=== PATIENT | female | born 1955 | race Caucasian/White ===

== ENCOUNTER 2017-12-02 16:30 | Emergency (ER) | payer OTHER ==
[~2017-12-02] VITALS: Ht 175.3 cm; Wt 94.8 kg
[2017-12-02] MEDS ORDERED: HYDROCHLOROTHIA25 MG PO (16:51)
[2017-12-02] MEDS ORDERED: VENTOLIN HFA18 GM INH (16:51)
[2017-12-02] MEDS ORDERED: METFORMIN HCL500 MG PO (16:52)
[2017-12-02] MEDS ORDERED: LISINOPRIL10 MG PO (16:52)
[2017-12-02] MEDS ORDERED: ATORVASTATIN CA10 MG PO (16:52)
[2017-12-02] MEDS ORDERED: TAMSULOSIN HCL0.4 MG PO (16:52)
[2017-12-02] MEDS ORDERED: DESVENLAFAXINE100 M3 PO (16:53)
[2017-12-02] MEDS ORDERED: PROPRANOLOL HCL20 MG PO (16:53)
[2017-12-02] MEDS ORDERED: ITRACONAZOLE100 MG PO (16:56)
[2017-12-02] MEDS ORDERED: ABILIFY5 MG PO (16:56)
== END 2017-12-02 18:13 | disposition home or self-care (01) ==
LOC: ED 16:30
DX: S80.12XA Contusion of left lower leg, initial encounter (principal); X58.XXXA Exposure to other specified factors, initial encounter; I10 Essential (primary) hypertension; E11.9 Type 2 diabetes mellitus without complications; J44.9 Chronic obstructive pulmonary disease, unspecified; F32.9 Major depressive disorder, single episode, unspecified; F41.9 Anxiety disorder, unspecified; F17.200 Nicotine dependence, unspecified, uncomplicated; Z79.2 Long term (current) use of antibiotics; Z88.8 Allergy status to other drugs, medicaments and biological substances; Z79.899 Other long term (current) drug therapy; Z79.84 Long term (current) use of oral hypoglycemic drugs
CPT/HCPCS: 85379; 99283

== ENCOUNTER 2022-01-25 10:25 | Emergency (ER) | payer OTHER ==
[~2022-01-25] VITALS: Ht 175.3 cm; Wt 94.8 kg
[~2022-01-25 10:25] MED LIST: ABILIFY5 MG PO; ATORVASTATIN CA10 MG PO; DESVENLAFAXINE100 M3 PO; HYDROCHLOROTHIA25 MG PO; ITRACONAZOLE100 MG PO; LISINOPRIL10 MG PO; METFORMIN HCL500 MG PO; PROPRANOLOL HCL20 MG PO; TAMSULOSIN HCL0.4 MG PO; VENTOLIN HFA18 GM INH
[2022-01-25] MEDS ORDERED: AMLODIPINE BESYL5 MG PO (10:33)
[2022-01-25] MEDS ORDERED: ADVAIR HFA 115-12 GM INH (10:34)
[2022-01-25] MEDS ORDERED: LISINOPRIL-HCT1 EACH PO (10:34)
[2022-01-25] MEDS ORDERED: LISINOPRIL20 MG PO (10:34)
[2022-01-25] MEDS ORDERED: HYDROCODON-ACE1 EA10 PO (13:24)
== END 2022-01-25 13:37 | disposition home or self-care (01) ==
LOC: ED 10:25
DX: S62.347A Nondisplaced fracture of base of fifth metacarpal bone, left hand, initial encounter for closed fracture (principal); I10 Essential (primary) hypertension; E11.9 Type 2 diabetes mellitus without complications; J44.9 Chronic obstructive pulmonary disease, unspecified; W18.09XA Striking against other object with subsequent fall, initial encounter; F17.200 Nicotine dependence, unspecified, uncomplicated; Z88.2 Allergy status to sulfonamides; Z91.048 Other nonmedicinal substance allergy status; Z79.84 Long term (current) use of oral hypoglycemic drugs
CPT/HCPCS: 73130

== ENCOUNTER 2022-02-04 14:35 | Emergency (ER) | payer OTHER ==
[~2022-02-04] VITALS: Ht 175.3 cm; Wt 103.0 kg
[~2022-02-04 14:35] MED LIST changes: +ADVAIR HFA 115-12 GM INH; +AMLODIPINE BESYL5 MG PO; +HYDROCODON-ACE1 EA10 PO; +LISINOPRIL-HCT1 EACH PO; +LISINOPRIL20 MG PO
--- OUTSIDE RECORDS SUMMARY | 2022-02-04 14:38 | XMS ---
PreManage Notification: MARY REDDY Security Director Cardiovascular Events No recent Security Events currently on file CRITERIA MET - PDM - [facility] - 2 Visits in 30 Days CARE PROVIDERS There are no care providers on record at this time. Care Guidelines exist for the following facilities: [facility] ( 09/18/2019 ) Andre VISIT COUNT (12 MO.) 3 [facility] TOTAL 3 NOTE: Visits indicate total known visits. ED/UCC VISIT TRACKING (12 MO.) 02/04/2022 14:35 [facility] TYPE: Emergency COMPLAINT: - ABNORMAL LAB RESULTS 02/02/2022 10:29 [facility] TYPE: Emergency COMPLAINT: - STABBING PAIN UNDER L BREAST 01/25/2022 10:25 [facility] TYPE: Emergency COMPLAINT: - CUTS TO HANDS AND FACE DIAGNOSES: - Allergy status to sulfonamides - Nicotine dependence, unspecified, uncomplicated - Nondisplaced fracture of base of fifth metacarpal bone, left hand, initial encounter for closed fracture - Chronic obstructive pulmonary disease, unspecified - Type 2 diabetes mellitus without complications - long term care phlebotomist (current) use of oral hypoglycemic drugs - Unspecified injury of face, initial encounter - Other nonmedicinal substance allergy status - Essential (primary) hypertension - Striking against other object with subsequent fall, initial encounter INPATIENT VISIT TRACKING (12 MO.) 2021 05:28 [facility] TYPE: Neuro Surgery DIAGNOSES: 39[address]. Other specified disorders of brain [email or web address]
--- NOTE | 2022-02-05 09:53 | EKG ---
[facility] [address] [place], [place] [address] Signed Sinus tachycardia Otherwise normal ECG When compared with ECG of 04-FEB-2022 14:35, (Unconfirmed) No significant change was found Confirmed by MAHSA MILIAN MD ([id number]) on 02/05/2022 9:52:57 AM Electronically Signed By: MAHSA MILIAN MD 02/05/22 0953 PATIENT NAME: MARY REDDY BECK Electrocardiogram DATE OF : 59 PHYSICIAN: MAHSA MILIAN MD REPORT #: [id number] REPORT IS CONFIDENTIAL AND NOT TO BE RELEASED WITHOUT AUTHORIZATION
== END 2022-02-04 18:37 | disposition home or self-care (01) ==
LOC: ED 14:35
DX: R07.9 Chest pain, unspecified (principal); R60.0 Localized edema; I10 Essential (primary) hypertension; E11.9 Type 2 diabetes mellitus without complications; J44.9 Chronic obstructive pulmonary disease, unspecified; F17.200 Nicotine dependence, unspecified, uncomplicated; Z88.2 Allergy status to sulfonamides; Z88.8 Allergy status to other drugs, medicaments and biological substances; Z79.84 Long term (current) use of oral hypoglycemic drugs; Z79.899 Other long term (current) drug therapy
CPT/HCPCS: 36415; 71260; 80048; 84484; 85025; 93005; 93010; 96361; 99285-25; J7030; Q9967

== ENCOUNTER 2024-02-20 05:40 | Day surgery (SDC) | payer MEDICARE, OTHER ==
[2024-02-07 11:20] VITALS: BP 130/81
[~2024-02-20] VITALS: Ht 175.3 cm; Wt 98.2 kg
[~2024-02-20 05:40] MED LIST changes: +GABAPENTIN ER300 MG PO; +LACTATED RINGER'S 1,000 ML IV SCH; +MELOXICAM15 MG PO; +NICOTINE PATCH1 EACH TD
[2024-02-20] MEDS ORDERED: LIDOCAINE HCL 2% 5 ML SDV ONE ×2 (06:01→11:48)
[2024-02-20] MEDS ORDERED: BUPIVACAINE 0.75% IN DEXTROSE 2 ML AMP ONE (06:01)
[2024-02-20] MEDS ORDERED: MIDAZOLAM HCL 2 MG/2 ML VIAL ONE (06:02)
[2024-02-20] MEDS ORDERED: METOCLOPRAMIDE HCL 10 MG/2 ML SDV ONE (06:02)
[2024-02-20] MEDS ORDERED: KETOROLAC TROMETHAMINE 30 MG/ML VIAL ONE (06:02)
[2024-02-20] MEDS ORDERED: DEXAMETHASONE SOD PHOS 4 MG/ML VIAL ONE ×2 (06:02→11:48)
[2024-02-20] MEDS ORDERED: KETAMINE in NS 50 MG/5 ML SYR ONE (06:02)
[2024-02-20] MEDS ORDERED: LACTATED RINGER'S 1,000 ML IV ONE (06:02)
[2024-02-20] MEDS ORDERED: FAMOTIDINE 20 MG/ 2 ML VIAL ONE (06:02)
[2024-02-20] MEDS ORDERED: propofoL 200 MG/20 ML VIAL ONE (06:02)
[2024-02-20] MEDS ORDERED: ondansetron HCL 4 MG/2 ML VIAL ONE (06:02)
[2024-02-20] MEDS ORDERED: fentaNYL citrate 100 MCG/2 ML VIAL ONE (06:02)
[2024-02-20 06:18] VITALS: BP 145/76
[2024-02-20] MEDS ORDERED: INTRA-ARTICULAR ANALGESIC INJECTION XX SCH (07:00)
[2024-02-20] MEDS ORDERED: CEFAZOLIN SODIUM 2 GM/20 ML SYR IV SCH ×2 (07:00→15:00)
[2024-02-20] MEDS ORDERED: OXYCODONE HCL 5 MG TAB PO PRN (07:00)
[2024-02-20] MEDS ORDERED: OXYCODONE HCL 5 MG TAB PO SCH (07:00)
[2024-02-20] MEDS ORDERED: GABAPENTIN 600 MG TAB PO SCH (07:00)
[2024-02-20] MEDS ORDERED: LIDOCAINE HCL 1% 5 ML SDV INJ ONE (07:00)
[2024-02-20] MEDS ORDERED: IBLOOD GLUCOSE TEST STRIP 1 EA TEST VI PRN ×2 (07:00→08:15)
[2024-02-20] MEDS ORDERED: ondansetron HCL 4 MG TAB PO PRN (07:00)
[2024-02-20] MEDS ORDERED: TRANEXAMIC ACID 2,000 MG in SODIUM CHLORIDE 0.9% 100 ML IV SCH (07:00)
[2024-02-20] MEDS ORDERED: ondansetron HCL 4 MG TAB PO SCH (07:00)
[2024-02-20] MEDS ORDERED: PANTOPRAZOLE SODIUM 40 MG TABEC PO SCH (07:00)
[2024-02-20] MEDS ORDERED: KETOROLAC TROMETHAMINE 30 MG/ML VIAL IV PRN (07:00)
[2024-02-20] MEDS ORDERED: HYDROCORTISONE SOD SUCCINATE 100 MG/2 ML VIAL ONE (07:10)
[2024-02-20] MEDS ORDERED: DIGOXIN 500 MCG/2 ML AMP ONE (07:52)
[2024-02-20] MEDS ORDERED: PROCHLORPERAZINE EDISYLATE 10 MG/2 ML VIAL IV PRN (08:15)
[2024-02-20] MEDS ORDERED: MORPHINE SULFATE 10 MG/ML VIAL IV PRN (08:15)
[2024-02-20] MEDS ORDERED: METOCLOPRAMIDE HCL 10 MG/2 ML SDV IV PRN (08:15)
[2024-02-20] MEDS ORDERED: fentaNYL citrate 50 MCG/ML SDV IV PRN (08:15)
[2024-02-20] MEDS ORDERED: NALOXONE HCL 0.4 MG SYR IV PRN (08:15)
[2024-02-20] MEDS ORDERED: ondansetron HCL 4 MG/2 ML VIAL IV PRN (08:15)
[2024-02-20] MEDS ORDERED: droPERidol 5 MG/2 ML VIAL IV PRN (08:15)
[2024-02-20] MEDS ORDERED: CEFUROXIME250 MG PO (08:34)
[2024-02-20] MEDS ORDERED: GABAPENTIN300 MG PO (08:35)
[2024-02-20] MEDS ORDERED: MELOXICAM15 MG PO (08:35)
[2024-02-20] MEDS ORDERED: XARELTO10 MG PO (08:35)
[2024-02-20] MEDS ORDERED: ACETAMINOPHEN500 MG PO (08:35)
[2024-02-20] MEDS ORDERED: OXYCODONE HCL5 MG PO (08:35)
[2024-02-20] MEDS ORDERED: SENNA LAX8.6 MG PO (08:35)
[2024-02-20] MEDS ORDERED: MELOXICAM 15 MG TAB PO SCH (09:00)
[2024-02-20] MEDS ORDERED: HYDROCORTISONE 10 MG TAB PO SCH (09:00)
--- NOTE | 2024-02-20 09:06 | NUR ---
02/20/24 0906 Felicia Kelsey 0834 PT TO PACU SLEEPING ORAL AIRWAY IN PLACE O2 VIA MASK. FOGGING NOTED IN MASK. XRAY AT BEDSIDE. FILMS DONE DR KELSEY APPROVED FILMS. 0843 ORAL AIRWAY REMOVED PT REMAINS ON O2 AT 6L. PT HAS HX OF SLEEP APNEA, PT SNORING, RESPONDS TO VERBAL STIMULI. 0901 O2 TURNED OFF PT OBSTRUCTS WHEN SHE FALLS ASLEEP SATS DROP, 0905 O2 PLACED BACK ON VIA MASK AT 6L
[2024-02-20 09:40] VITALS: BP 174/84
[2024-02-20] MEDS ORDERED: ACETAMINOPHEN 1,000 MG/100 ML VIAL IV ONE (09:45)
[2024-02-20] MEDS ORDERED: TRANEXAMIC ACID 2,000 MG in SODIUM CHLORIDE 0.9% 100 ML IV ONE (09:47)
--- NOTE | 2024-02-20 10:04 | NUR ---
0935-PT BACK TO ROOM FROM PACU ON 2L VIA WY. RECEIVED REPORT FROM SHERYL MCFADDEN. PT IS DROWSY. RATES PAIN 9/10. DENIES NAUSEA. DRESSING IS CLEAN, DRY, AND INTACT. CRYO CUFF IN PLACE AND RUNNING. PT'S SISTER AT BED SIDE. 0949-VO FOR OFIRMEV PER DARREN SCHUMACHER. 0953-OFIRMEV GIVEN PER EMAR. PT LAYING IN BED WITH EYES CLOSED. RESP EVEN AND UNLABORED. NO SIGNS OF DISTRESS. PT AWAKES EASILY AND MOANS THEN RELAXES AND STARTS TO SNORE. NO OTHER NEEDS AT THIS TIME. CALL LIGHT WITHIN REACH.
--- NOTE | 2024-02-20 10:04 | OR ---
[facility] [address] [place] [address] Signed DATE OF OPERATION: 02/20/2024 SURGEON: Myah Kelsey MD PREOPERATIVE DIAGNOSIS: Degenerative joint disease, right hip. POSTOPERATIVE DIAGNOSIS: Degenerative joint disease, right hip. PROCEDURE PERFORMED: Right total hip arthroplasty with Estuardo. JOURNALISM INSTRUCTOR: Jessy Hall PA-C. Jessy was present and critical for all portions of the procedure. ANESTHESIA: Spinal. BLOOD LOSS: 175 mL. IMPLANTS: Secur-Fit advanced size 7 high offset with a 54 cup and two screws, +2.5 femoral head. BRIEF HISTORY: Mary is a 68-year-old female with progressive worsening of osteoarthritis in her hip. She had undergone nonoperative treatment without substantial relief. Risks, benefits, and alternatives of surgery were discussed with her and she elected to proceed. DESCRIPTION OF PROCEDURE: Once consent was obtained, she was taken to the operating room after adequate anesthesia. She was placed on the operating table in a left lateral decubitus position. Axillary roll was placed and all downside pressure points were well padded. The hip was prepped and draped in a standard sterile fashion. The two pins for the navigation system were placed in the iliac crest in the posterior one-third. This was done through percutaneous incisions. The hip was approached through standard anterior lateral approach, taken through skin and subcutaneous tissue. IT band was divided longitudinally. The vastus lateralis was divided from the tip of the trochanter along Electronically Signed By: MYAH KELSEY MD 02/20/24 1004 PATIENT NAME: MARY REDDY OPERATIVE REPORT DATE OF : 59 REPORT #: [id number] PHYSICIAN: MYAH KELSEY MD PCP: SULEMAN ALEXANDRE MD REPORT IS CONFIDENTIAL AND NOT TO BE RELEASED WITHOUT AUTHORIZATION [facility] [address] [place], [place] [address] Signed the anterior margin of the femur distally and subperiosteally elevated around the lesser trochanter. The capsule and gluteus minimus were then cut from the trochanter along the femoral neck to the acetabular rim. This was then peeled off the anterior femoral neck. The femur was then registered with the computer. The hip was then dislocated. Femoral neck cut made one fingerbreadth above the lesser trochanter. The femoral head was passed onto the back table and preserved. Periacetabular soft tissue was removed. The acetabulum was then registered with the computer and the reamer was brought in. The acetabulum was reamed using a 54 single pass to specifications of the computer. The debris was cleaned out of the acetabulum and the cup was impacted until it was well-seated. Two screws were placed in the posterior superior quadrant. The liner was then impacted until it was well locked. Attention was then turned to the proximal femur, this was opened using RecruitTalk cutter, followed by the Maggi awl. It was then reamed with a lateralized reamer. It was then sequentially broached up to a 7, which was found to be quite well fitting. The high offset neck was placed on it with initially a -2.5, then a +2.5. A +2.5 felt secure with a negative Shuck test. She had 100 degrees of flexion with 30 of internal and external rotation. No impingement was noted. The computer verified judaism of leg length and offset. The hip was dislocated and the trials removed. The final stem was impacted to the same level as the broach. The +2.5 head was impacted after cleaning the trunnion. The hip was reduced again, found to be an excellent stability. The wound was copiously irrigated with one bottle of Surgiphor after changing gloves. It was then irrigated with normal saline. The incision of soft tissues was injected with 100 mL ropivacaine and Toradol mixture. The capsule was closed using #2 FiberWire. The vastus and IT band layers were closed independently using #2 StrataFix, subcutaneous tissue with 0-StrataFix and skin with 3-0 StrataFix. The wound was sealed with LiquiBand and Steri-Strips. An Acticoat 7 dressing was applied. The patient was awakened and taken to the recovery room in satisfactory condition. All sponge, needle, and instrument counts correct. Myah Kelsey MD BA/MODL /[id number] Electronically Signed By: MYAH KELSEY MD 02/20/24 1004 PATIENT NAME: MARY REDDY OPERATIVE REPORT DATE OF : 59 REPORT #: [id number] PHYSICIAN: MYAH KELSEY MD PCP: SULEMAN ALEXANDRE MD REPORT IS CONFIDENTIAL AND NOT TO BE RELEASED WITHOUT AUTHORIZATION [address] [address] Signed Copies: ~ Electronically Signed By: MYAH KELSEY MD 02/20/24 1004 PATIENT NAME: MARY REDDY OPERATIVE REPORT DATE OF : 59 REPORT #: [id number] PHYSICIAN: MYAH KELSEY MD PCP: SULEMAN ALEXANDRE MD REPORT IS CONFIDENTIAL AND NOT TO BE RELEASED WITHOUT AUTHORIZATION
--- NOTE | 2024-02-20 10:13 | NUR ---
1013-PT LAYING IN BED WITH EYES CLOSED AND SNORING. NO OTHER NEEDS AT THIS TIME. CALL LIGHT WITHIN REACH.
[2024-02-20] MEDS ORDERED: HYDROCORTISONE10 MG PO (10:31)
[2024-02-20 10:34] VITALS: BP 179/83
--- NOTE | 2024-02-20 10:36 | NUR ---
PT LAYIING IN BED WITH EYSES CLOSED WITH OCCASIONAL SNORING. RESP EVEN AND UNLABORED. RATES PAIN /10. DENIES NAUSEA. R HIP DRESSING CLEAN, DRY, AND INTACT. CRYO CUFF IN PLACE AND RUNNING. CALL LIGHT WITHIN REACH. DISCUSSED NERVE BLOCKS WITH LAKISHA SCHUMACHER. WILL DO BLOCKS WHEN ENDY'S CURRENT CASE IS COMPLETE. PT ARGREEABLE TO THIS PLAN.
--- NOTE | 2024-02-20 10:45 | NUR ---
PTS DRINKING WATER AND EATING A CRACKER. PAIN MEDICATION GIVEN PER EMAR. NO OTHER NEEDS AT THIS TIME. CALL LIGHT WITHIN REACH.
[2024-02-20 11:34] VITALS: BP 156/91
--- NOTE | 2024-02-20 11:36 | NUR ---
PT LAYING IN BED WITH EYES CLOSED. PT WAKES EASILY WITH VERBAL STIMULI. RESP EVEN AND UNLABORED. RATES PAIN 6/10. DENIES NAUSEA. DRESSING IS CLEAN, DRY, AND INTACT. CRYO CUFF IN PLACE AND RUNNING. PT GOWN AND BED SHEETS ARE SOILD. 1140-BED SHEETS CHANGED WITH 2 RN ASSIST. PT TOLERATED WELL. RATES PAIN A 6/10 WHEN NOT MOVING. NO OTHER NEEDS AT THIS TIME. CALL LIGHT WITHIN REACH.
[2024-02-20] MEDS ORDERED: dexmedeTOMIDine HCl 200 MCG/2 ML VIAL ONE (11:48)
[2024-02-20] MEDS ORDERED: Ropivacaine HCl 0.5% 30 ML VIAL ONE ×2 (11:48→12:04)
[2024-02-20] MEDS ORDERED: SODIUM CHLORIDE 0.9% 20 ML IV ONE ×2 (11:48→12:04)
--- NOTE | 2024-02-20 11:55 | NUR ---
1155-LAKISHA COOK SAUCE IN ROOM FOR NERVE BLOCKS. 1207-NERVE BLOCKS COMPLETE. NO OTHER NEEDS AT THIS TIME. SISTER BACK IN ROOM. CALL LIGHT WITHIN REACH.
[2024-02-20 12:59] VITALS: BP 104/80
--- NOTE | 2024-02-20 13:14 | NUR ---
LE 1240-PT UPTO BEDSIDE COMMODE WITH 2 RN ASSIST. PT STATES WHEN MOVING RIGHT LEG SHE FELT A POP WITH PAIN. PT ABLE TO MOVE TO COMMODE. LE 1255-PT VOIDS 1100ML OF YELLOW URINE. LE 1259-PT BACK TO BED WITH 2 RN ASSIST. RATES PAIN 5/10. RESP EVEN AND UNLABORED. DRESSING IS CLEAN, DRY, AND INTACT. CRYO CUFF IN PLACE AND RUNNING. LUNCH ORDER. SISTER AT BEDSIDE. CALL LIGHT WITHIN REACH. LE 1310-LUNCH DELIVERED.
--- NOTE | 2024-02-20 13:24 | NUR ---
PT IN ROOM WITH PATIENT.
[2024-02-20 14:16] VITALS: BP 148/73
--- NOTE | 2024-02-20 14:21 | NUR ---
1415-PT BACK TO ROOM FROM PHYSICAL THERAPY.
[2024-02-20] MEDS ORDERED: GABAPENTIN 300 MG CAP PO SCH (15:00)
[2024-02-20] MEDS ORDERED: ACETAMINOPHEN 500 MG TAB PO SCH (15:00)
--- NOTE | 2024-02-20 15:13 | NUR ---
NATALIO 1422-PT IS READY TO GET DRESSED. VSS. RATES PAIN 4/10. DRESSING IS CLEAN, DRY, AND INTACT. SISTER IN THE ROOM. PT WILL GET DRESSED. CALL LIGTH WITHIN REACH.
--- NOTE | 2024-02-20 15:43 | NUR ---
NATALIO 1525-WENT OVER DISCHARGE INSTRUCTIONS WITH PT. PT IS DROWSY AND WOULD CLOSE HER EYES WHILE GOING OVER INSTRUCTION. PT AMBULATES WITH WALKER TO WHEELCHAIR AND RIDE PROVIDED TO FRONT OF HOSPITAL WHERE SISTER WAS WAITING. WENT OVER DISCHARGE INSTRUCTIONS WITH PT'S SISTER. ALL QUESTIONS ANSWERED. QUESTIONS RE ONE MEDICATION. WILL CALL DR. BLAKE AND CLARIFY.
--- NOTE | 2024-02-20 15:54 | NUR ---
1516-PHONE CALL TO DR BLAKE RE HYDROCORTISONE. PT PICKED UP MEDICATION SENT IN BY [facility] WITH SPECIFIC INSTRUCTIONS. DR. BLAKE WANTS PT TO FOLLOW [facility] INSTRUCTIONS. FAMILY NOTIFIED.
[2024-02-20] MEDS ORDERED: SENNOSIDES 1 TAB PO SCH (21:00)
[2024-02-21] MEDS ORDERED: Rivaroxaban 10 MG TAB PO SCH (08:00)
[2024-02-21] MEDS ORDERED: DICLOFENAC SOD 75 MG TABEC PO SCH (08:00)
[2024-02-21] MEDS ORDERED: cefuroxime axetiL 250 MG TAB PO SCH (09:00)
--- NOTE | 2024-02-23 12:17 | EKG ---
[facility] [address] [place] [address] Signed Normal sinus rhythm Low voltage QRS Borderline ECG When compared with ECG of 04-FEB-2022 14:36, No significant change was found Confirmed by Asael Saeed MD ([id number]) on 02/23/2024 12:17:23 PM Electronically Signed By: ASAEL SAEED DO 02/23/24 1217 PATIENT NAME: MAUREENMARYMELVIN SOLARES Electrocardiogram DATE OF : 59 PHYSICIAN: ASAEL SAEED DO REPORT #: [id number] REPORT IS CONFIDENTIAL AND NOT TO BE RELEASED WITHOUT AUTHORIZATION
== END 2024-02-20 15:25 | disposition home or self-care (01) ==
LOC: DS 05:40
PROVIDERS: ATTEND Specialist
PROC: 0SR90JZ Replacement of Right Hip Joint with Synthetic Substitute, Open Approach (ICD-10-PCS; principal; 2024-02-20 07:00)
DX: M16.11 Unilateral primary osteoarthritis, right hip (principal); I10 Essential (primary) hypertension; E11.9 Type 2 diabetes mellitus without complications; F17.200 Nicotine dependence, unspecified, uncomplicated; Z79.899 Other long term (current) drug therapy; Z88.2 Allergy status to sulfonamides; Z88.8 Allergy status to other drugs, medicaments and biological substances
CPT/HCPCS: 01214; 72170; 93005; 93010; 97161; A9270; C1713; C1776; J0131; J0690; J1100; J1160; J1720; J1885; J2001; J2250; J2405; J2704; J2765; J2795; J3010; J3490; J7121

== ENCOUNTER 2024-02-26 18:29 | Observation (INO) | payer MEDICARE, OTHER ==
[~2024-02-26] VITALS: Ht 175.3 cm; Wt 101.5 kg
[~2024-02-26 18:29] MED LIST changes: +ACETAMINOPHEN500 MG PO; +CEFUROXIME250 MG PO; +GABAPENTIN300 MG PO; +HYDROCORTISONE10 MG PO; -LACTATED RINGER'S 1,000 ML IV SCH; +OXYCODONE HCL5 MG PO; +SENNA LAX8.6 MG PO; +XARELTO10 MG PO
[2024-02-26 20:33] LABS: BASOPHILS 0.6 % (0-2); HEMOGLOBIN 11.1 g/dL (12.0-18.0)
[2024-02-26 20:36] LABS: HEMATOCRIT 32.7 % (35.0-50.0); LYMPHOCYTES 23.8 % (24-44); MCH 30.9 (27-36); MCHC 34.1 g/dl (30-36); MCV 90.5 fl (81-99); MONOCYTES 8.2 % (0-12); NEUTROPHILS 64.4 % (39-80); PLATELET COUNT 397 K/uL (140-440); RBC 3.61 M/ul (4.3-5.7); RDW 13.3 (10.5-15.0)
[2024-02-26 20:40] LABS: ALBUMIN 3.2 g/dL (3.4-5.0); ALBUMIN/GLOBULIN RATIO 0.97 (1.1-2.4); ANION GAP 11.4 (7-21); BILIRUBIN, TOTAL 0.2 ng/dL (0.2-1.0); BUN/CREATININE RATIO 21.15 (6.0-28.6); CALCIUM 9.5 mg/dL (8.5-10.1); CREATININE, SERUM 1.04 mg/dL (0.55-1.02); POTASSIUM 4.4 mmol/L (3.5-5.1); PROTEIN, TOTAL 6.5 g/dL (6.4-8.2)
[2024-02-26] MEDS ORDERED: CEFTRIAXONE/SODIUM CHLORIDE 2 GM/100 ML PIGGYBACK IV ONE (21:45)
[2024-02-26] MEDS ORDERED: DAPTOmycin 500 MG/10 ML VIAL IV ONE (21:45)
[2024-02-26] MEDS ORDERED: OXYCODONE HCL 5 MG TAB PO PRN (21:45)
[2024-02-26 22:25] LABS: LACTIC ACID, BLOOD 0.8 mmol/L (0.4-2.0)
[2024-02-26 23:01] VITALS: BP 169/80
[2024-02-26] MEDS ORDERED: GABAPENTIN300 MG PO (23:06)
--- NOTE | 2024-02-26 23:38 | NUR ---
PT TO FLOOR VIA STRETCHER WITH ED RN. REPORT RECEIVED. PT ALERT AND ORIENTED. SBA WITH FWW TO [facility] TO VOID. GAIT STEADY. BACK TO BED, DREA WELL. ASSISTANCE PROVIDED TO LIFT RIGHT LEG INTO BED. RIGHT LEG WITH GENERALIZED EDEMA AND REDNESS. WARMTH NOTED IN HIP AREA. SURGICAL DRESSING INTACT WITH OLD DRAINAGE. ICE PACKS APPLIED TO RIGHT HIP. STRONG PEDAL PULSES FELT. PT REPORTS CHONIC INTERMITTENT NUMBNESS IN FRON OF RIGHT LEG FROM HIP TO KNEE. PT REPORTS RLE PAIN 8/10. PRN FOR PAIN ADMIN PER EMAR. SANDWICH BOX PROVIDED. PT ORIENTED TO ROOM AND NURSE CALL LIGHT. ADMISSION ASSESSMENT COMPLETE. PT DENIES QUESTIONS OR CONCERNS. CALL LIGHT IN REACH. BED ALARM FOR SAFETY.
[2024-02-27] VITALS (9 sets, daily range): BP systolic 116–154; BP diastolic 57–82
--- NOTE | 2024-02-27 00:05 | NUR ---
PATIENT CALLED TO USE THE BEDSIDE COMMODE. SBA. PATIENT ASSISTED LIFTING HER RIGHT LEG OUT OF BED AND BACK. PATIENT VOIDED 400ML YELLOW URINE AND LARGE HARD BM. WINDOW BLINDS DOWN PER PATIENT. NO OTHER NEEDS AT THIS TIME. CALL LIGHT IN REACH. BED ALARM ON FOR SAFETY.
--- NOTE | 2024-02-27 02:19 | NUR ---
PT RESTING WITH EYES CLOSED. AWAKENS EASILY. VS AND I&O OBTAINED. NO C/O PAIN AT THIS TIME. ICE PACKS TO RIGHT HIP. GENERALIZED EDEMA/REDNESS UNCHANGED. DRESSING INTACT TO RIGHT HIP WITH OLD DRAINAGE. ASSISTED PT TO REPOSITION. HOB ELEVATED. NO FURTHER NEEDS. BED ALARM IN PLACE. CALL LIGHT IN REACH.
--- NOTE | 2024-02-27 04:15 | NUR ---
PT RESTING IN BED WITH EYES CLOSED. RESPIRATIONS EVEN. CALL LIGHT IN REACH. BED ALARM FOR SAFETY.
--- NOTE | 2024-02-27 04:45 | NUR ---
SBA PATIENT UP TO BEDSIDE COMMODE VOIDED 350ML YELLOW URINE. PATIENT IS BACK IN BED. PATIENT ASSISTED IN LIFTING HER RIGHT LEG OUT AND BACK TO BED. COFFEE PROVIDED PER PATIENT.
--- NOTE | 2024-02-27 05:08 | NUR ---
PT AWAKE IN BED. VS AND I&O OBTAINED, WNL. PT REPORTS RIGHT LEG PAIN 8/. PRN FOR PAIN ADMIN PER EMAR. NO FURTHER NEEDS.
[2024-02-27 05:30] LABS: HEMOGLOBIN 11.3 g/dL (12.0-18.0); MONOCYTES 7.6 % (0-12); RDW 13.3 (10.5-15.0)
[2024-02-27 05:33] LABS: BASOPHILS 0.6 % (0-2); EOSINOPHILS 3.6 % (0-6); HEMATOCRIT 34.2 % (35.0-50.0); LYMPHOCYTES 23.7 % (24-44); MCH 29.9 (27-36); MCV 90.7 fl (81-99); NEUTROPHILS 64.5 % (39-80); PLATELET COUNT 393 K/uL (140-440); RBC 3.77 M/ul (4.3-5.7)
--- NOTE | 2024-02-27 07:00 | NUR ---
Pt report received from LESA Jara. Pt is resting in bed, supine, with HOB elevated, breathing is regular, even, and non-labored and she is asleep. White board updated. Side rails up x4, call light, bedside table, and personal belongings in reach.
[2024-02-27] MEDS ORDERED: Rivaroxaban 10 MG TAB PO SCH (08:00)
--- NOTE | 2024-02-27 08:36 | NUR ---
Patient called requesting bedside commode assistance. After voiding, they walked around their room with walker and stand by assist. Patient reported being in pain and nurse was notified. No other cares were asked for.
--- NOTE | 2024-02-27 09:00 | NUR ---
Advised by Aides that this pt is requesting pain meds at this time. In with pt to administer PO Oxy per emar for 9 out of 10 right hip/leg pain after ambulation with aides in the room. Ice packs x2 applied over right hip. call light in reach.
[2024-02-27] MEDS ORDERED: METFORMIN HCL500 M1 PO (09:27)
--- NOTE | 2024-02-27 09:35 | NUR ---
In with pt in response to call light because pt is "finished on the commode". Pt was able to stand and pivot transfer unassisted to the bed before this RN arrived in her room. Assisted pt with lifting her right leg back in to bed. Commode emptied of a large soft formed BM and 400ml clear yellow urine. Call light, personal belongings, bedside table in reach.
--- NOTE | 2024-02-27 09:52 | NUR ---
ALERT AND ORIENTED IN BED. STATES SHE LIVES IN APARTMENT WITH 16 STEPS, HOWEVER SHE IS STAYING WITH A FRIEND WHILE SHE RECOVERS FROM SURGERY. STATES SHE HAS A WALKER, TOILET RISER, SHOWER CHAIR. SHE IS UNABLE TO DRIVE DUE TO RECENT SURGERY, HOWEVER FRIEND AND GOBHI ASSIST WITH TRANSPORTATION. PATIENT HAS HAD ISSUES WITH BUYING FOOD. STATES SHE GETS $118 IN SNAP BENEFITS FOR FOOD. DENIES NEED FOR INFORMATION REGARDING FOOD PANTRIES. STATES SHE DOES NOT NEED THAT INFORMATION YET. DENIES FURTHER NEEDS. STATES SHE WILL NOTIFY STAFF WITH ANY CHANGES.
[2024-02-27] MEDS ORDERED: TYLENOL EXTRA500 MG PO (10:37)
[2024-02-27] MEDS ORDERED: AMLODIPINE BESY10 MG PO (10:37)
[2024-02-27] MEDS ORDERED: LISINOPRIL40 MG PO (10:38)
[2024-02-27] MEDS ORDERED: WOMEN'S 50 PLU1 EACH PO (10:39)
[2024-02-27] MEDS ORDERED: IRON325 M1 PO (10:39)
[2024-02-27] MEDS ORDERED: VITAMIN D350 MC3 PO (10:40)
[2024-02-27] MEDS ORDERED: CALCIUM CITRAT250 MG PO (10:40)
[2024-02-27] MEDS ORDERED: HYDROCORTISONE20 MG PO (10:41)
--- NOTE | 2024-02-27 10:42 | NUR ---
MED REC COMPLETE
--- NOTE | 2024-02-27 11:14 | NUR ---
Patient had a visitor and did not require any assitance. Ice water was asked for and given.
--- NOTE | 2024-02-27 11:48 | NUR ---
Dr. Kelsey in with pt.
[2024-02-27] MEDS ORDERED: SENNOSIDES 1 TAB PO SCH (11:56)
--- NOTE | 2024-02-27 11:57 | NUR ---
In with pt to replace the acticoat dressing at Dr. Shook's request. He removed the dressing to the surgical site, leaving the dressing on the site superior to that, intact. Pt asked about her home meds and requested I ask Dr. Kelsey about them. He advised he is working on her meds now and to replace only the lower dressing. This was done.
[2024-02-27] MEDS ORDERED: NICOTINE 14 MG/24 HR 1 EA TDSY TD SCH (12:00)
[2024-02-27] MEDS ORDERED: ACETAMINOPHEN 500 MG TAB PO PRN (12:00)
[2024-02-27] MEDS ORDERED: HYDROCORTISONE 10 MG TAB PO PRN (12:00)
[2024-02-27] MEDS ORDERED: KETOROLAC TROMETHAMINE 30 MG/ML VIAL IV PRN (12:00)
[2024-02-27] MEDS ORDERED: DAPTOmycin 500 MG/10 ML VIAL IV SCH ×2 (12:04→12:14)
--- NOTE | 2024-02-27 13:00 | NUR ---
In with pt for request for pain meds. Pt provided with [address] to [address] on her right lateral upper thigh with a hand towel between her skin and the ice packs. IV is patent, good blood return, flushes well, no burning/pain, no redness/swelling, no leaking. Pt up to BSC with 1PA to lift her right leg off the bed. Pt voided about 700ml clear yellow urine and passed a lot of gas. Pt declined the senokot at this time as she has had 2 BMs in the last 12 hours. Pt was provided with IV toradol per emar, as well as 5mg PO Oxycodone at pt's request. Bedside tables, personal belongings, and call light in reach, side rails up.
--- NOTE | 2024-02-27 13:04 | NUR ---
UR CLINICAL REVIEW: 2 MN FOR VERSALUS-MEETS INPT CRITERIA. WILL DISCUSS WITH . MEDICARE OBS 02/26/24 @ 0912 ORDER MATCHES REG NO AUTH REQUIRED PER MEDICARE GUIDELINES DISCHARGE TO HOME WHEN STABLE
--- NOTE | 2024-02-27 14:15 | NUR ---
Advised by Charge nurse Elisha, that while I was at lunch, the pt's IV antibiotics completed and she saline locked the IV.
--- NOTE | 2024-02-27 14:35 | NUR ---
VISITED DURING SPIRITUAL CARE ROUNDS. PT APPEARED TO BE SLEEPING. DID NOT DISTURB. PROVIDED PRAYER.
[2024-02-27] MEDS ORDERED: GABAPENTIN 300 MG CAP PO SCH ×2 (15:00→21:00)
--- NOTE | 2024-02-27 16:38 | NUR ---
In with pt in response to call light to use the BSC. 1 PA pt to edge of bed where she used her FWW to transfer to the BSC at the side of the bed, to void. Pt asked if she should be using an incentive spirometer like she did during her last hospital stay. I advised her that there was not an order for one but if she feels the need to use one to let me know, and explained to her that she can practice deep breathing exercises if she would like to. The patient's sister, Wen, called and left a message for me to contact her with updates about "what Dr. Kelsey said". I advised the pt of this and the pt gave me verbal permission to speak to her sister, Wen, and give her updates during her stay.
--- NOTE | 2024-02-27 16:51 | NUR ---
PC to pt's sister, Wen, to return her call. Answered her questions. She did not voice any concerns.
--- NOTE | 2024-02-27 17:36 | NUR ---
DR. REN IN TO CONSULT WITH THIS PT. PT REPORTS SHE HAS AN ADVANCE DIRECTIVE ON FILE WITH THE HOSPITAL. SHE REPORTS HER SISTER, TRACY AJ (SP?) WOULD HAVE POWER OF PROFESSOR OF RHETORIC FOR HER IF SHE IS UNABLE TO MAKE DECISIONS FOR HERSELF.
--- NOTE | 2024-02-27 18:06 | NUR ---
Pt has remained in bed for most of this shift, but has requested staff to help her ambulate around her room to "keep the blood flowing". She has requested she receive pain meds every four hours because she reports her pain is an 8-9 out of 10 in her right leg. She, initially, refused to move the right leg without staff physically moving it for her, then, with teaching, was able to move her right leg using a towel. She has been up to the [facility] several times to void and has had a large BM this shift. She declined the senokot this morning, stating that she isn't having any problems with BMs at this time. Pt was very concerned about making sure her home medications would be restarted and Dr. Hong consulted with her, answering all of her questions regarding her home meds. She plans to write down other questions she has so she can ask them when both providers make their rounds tomorrow. Pt has tolerated transferring to [facility], and ambulating around room with FWW and SBA.
--- NOTE | 2024-02-27 18:23 | NUR ---
PATIENT SITTING UP IN BED WATCHING TV AT THIS TIME. VITALS AND I&O'S DONE AND CHARTED. CALL LIGHT IN REACH. NO FURTHER NEEDS AT THIS TIME.
--- NOTE | 2024-02-27 19:05 | NUR ---
REPORT RECEIVED FROM RACHEL MCFADDEN. BOARD UPDATED. pt DENIES ANY OTHER NEEDS AT THIS TIME. CALL LIGHT WITHIN REACH. pt RESTING IN THE BED.
[2024-02-27] MEDS ORDERED: DEXTROSE 5% 1,000 ML IV PRN (19:15)
[2024-02-27] MEDS ORDERED: DEXTROSE 50% 50 ML SYR IV PRN ×2 (19:15)
[2024-02-27] MEDS ORDERED: GLUCAGON,HUMAN RECOMBINANT 1 MG/ML VIAL SUB-Q PRN (19:15)
[2024-02-27] MEDS ORDERED: IBLOOD GLUCOSE TEST STRIP 1 EA TEST XX PRN (19:15)
--- NOTE | 2024-02-27 20:50 | NUR ---
ASSESSMENT AND VITAL SIGNS DONE. pt RESTING IN THE BED. BG CHECKED WITH A RESULTS OF 179. SS INSULING ADMINISTERED. RIGHT HIP UPPER DRESSING HAS SCANT AMOUNT OF DRAINAGE. RIGHT HIP LOWER DRESSING CDI. MINIMAL REDNESS AROUNG DRESSINGS. pt UP TO THE BSC WITH SBA AND FWW. pt ABLE TO GET RIGHT LED IN AND OUT OF THE BED ON HER OWN. RIGHT ANKLE HAS 2+ PITTING EDEMA THAT IS PAINFUL TO TOUCH. WATER REFRESHED. pt DENIES ANY OTHER NEEDS AT THIS TIME. CALL LIGHT WITHIN REACH. SCHEDULED MEDICATION ADMINISTERED, SEE
[2024-02-27] MEDS ORDERED: INSULIN LISPRO 100 UNIT/ML ML SUB-Q SCH (21:00)
[2024-02-27] MEDS ORDERED: HYDROCORTISONE 10 MG TAB PO SCH (21:00)
[2024-02-27] MEDS ORDERED: MAGNESIUM HYDROXIDE 30 ML UDC PO SCH (21:00)
[2024-02-27] MEDS ORDERED: IBLOOD GLUCOSE TEST STRIP 1 EA TEST XX SCH (21:00)
[2024-02-27] MEDS ORDERED: metFORMIN HCL 500 MG TABCR PO SCH (21:00)
--- NOTE | 2024-02-27 21:36 | NUR ---
SCHEDULED ABX ADMINISTERED, SEE MAR. pt DENIES ANY OTHER NEEDS AT THIS TIME. CALL LIGHT WITHIN REACH.
--- NOTE | 2024-02-27 23:35 | NUR ---
pt RESTING IN THE BED WITH EYES CLOSED. RR EVEN AND UNLABORED. CALL LIGHT WITHIN REACH.
[2024-02-28] VITALS (10 sets, daily range): BP systolic 139–169; BP diastolic 73–87
--- NOTE | 2024-02-28 01:28 | NUR ---
PATIENT CALLED TO USE THE BEDSIDE COMMODE. SBA. PATIENT UP USING WALKER AND VOIDED 1000ML LIGHT YELLOW URINE. PATIENT IS BACK IN BED. NO FURTHER NEEDS EXPRESSED.
--- NOTE | 2024-02-28 03:27 | NUR ---
PT UP TO BSC TO VOID WITH FWW AND SBA. PT ABLE TO DO OWN TOMER CARE. BACK TO BED, DREA WELL. GAIT STEADY. PT ABLE TO LIFT RIGHT LEG INTO BED WITH TOWEL. ICE PACKS TO RIGHT HIP. PT REPORTS RLE PAIN 8/10. PRN FOR PAIN ADMIN PER EMAR. NO FURTHER NEEDS. PRIMARY RN AWARE.
[2024-02-28 05:38] LABS: BASOPHILS 0.8 % (0-2); HEMATOCRIT 33.9 % (35.0-50.0); HEMOGLOBIN 11.8 g/dL (12.0-18.0); MCH 31.8 (27-36); MCHC 34.8 g/dl (30-36); MCV 91.1 fl (81-99); NEUTROPHILS 69.2 % (39-80); PLATELET COUNT 419 K/uL (140-440); RBC 3.72 M/ul (4.3-5.7); RDW 13.4 (10.5-15.0)
--- NOTE | 2024-02-28 06:33 | NUR ---
pt RESTED THROUGH OUT THE NIGHT. PRN PAIN MEDICATION ADMINISTERED. pt SBA WITH FWW. pt ABLE TO GET OWN LEG IN AND OUT OF BED WHEN NEEDED. NORA HOSE ON. UPPER DRESSING WITH OLD DRAINAGE AND SHADOWING OTHER GALLARDO DRY AND INTACT. LOWER DRESSING IS CDI. IV ABX INFUSED PER ORDER.
--- NOTE | 2024-02-28 07:23 | NUR ---
PT RESTING SOUNDLY AT TIME OF SHIFT REPORT, LEFT UNDISTURBED. AWAKE NOW DR BLAKE IN TO SEE HER. DRESSING TO TOP INCISION CHANGED. INSTRUCTIONS TO INCREASE H20 INTAKE GIVEN TO PT ALL QUESTIONS ANSWERED. PT AGREES SHE IS COMFORTABLE NOW, REPORTS PAIN IS MAINLY WITH MOVEMENT.
--- NOTE | 2024-02-28 07:54 | NUR ---
PT C/O HEAD ACHE WELL CRAMPING PAIN UPPER RIGHT HIP. ASSISTED TO THE CHAIR TYLENOL AND OXY ADMINISTERED. FRESH ICE BAG WELL H20 PROVIDED. CALL LIGHT IN LAP. WARM BLANKET AND PILLOWS PER REQUEST. APPLESAUCE AND CRACKERS PROVIDED WITH MEDS. DENIES OTHER NEEDS OF.
[2024-02-28] MEDS ORDERED: DICLOFENAC SOD 75 MG TABEC PO SCH (08:00)
[2024-02-28] MEDS ORDERED: AMLODIPINE BESYLATE 10 MG TAB PO SCH (09:00)
--- NOTE | 2024-02-28 09:00 | NUR ---
Attempted to see patient, she is working with PT. PT then spoke with her and stated concern for pt to get to OP. I will discuss this with her when I see her.
--- NOTE | 2024-02-28 09:20 | NUR ---
BREAKFAST WELL TOLERATED. PT HAS REMAINED UP IN THE CHAIR SINCE START OF SHIFT, IS NOW WORKING WITH P/T. REQUESTS ADDITIONAL PAIN MEDICATION. 5 MG ADMINISTERED THIS MORNING 5 ADDITIONAL MG ADMINISTERED AT THIS TIME. NEW ICE PACK AND ALL NEEDED ITEMS AVAILABLE TO PT
--- NOTE | 2024-02-28 09:59 | NUR ---
UR CONCURRENT REVIW: 2 MN FOR VERSALUS-PATIENT MEETS INPATIENT CRITERIA WITH NEED FOR IV ABX. SPOKE WITH DR. BLAKE, DECLINES TO CHANGE STATUS AND WISHES PATIENT REMIAN OBS MEDICARE OBS 02/26/24 @ 1830 ORDER MATCHES REG NO AUTH REQUIRED PER MEDICARE GUIDELINES DISCHARGE IN AM ON 02/29/24 PER MD 02/29/24
--- NOTE | 2024-02-28 10:30 | NUR ---
Spoke with Kym. Discussed concerns by PT for pt getting food and transportation where she is staying. She states her friend is a late sleeper, so she gets her own breakfast and also dinner at times as friend eats late. She states she drives and has a car, but cannot drive at this time. I gave her the options of dial a ride or the taxi for transport to OP rehab. Pt states she had to cancel her appointment today. She wants to cont. with OP and states, "I will figure it out". She was talking about transportation. Pt denies further needs. Pts sister called as soon as I returned to my office. She is concerned about transport also. I updated to our conversation and pt declined assist. She states she will discuss with her sister.
--- NOTE | 2024-02-28 10:41 | NUR ---
PT UP IN THE CHAIR ICE PACK TO RIGHT HIP. CONTINUES TO C/O CRAMPING TYPE PAIN UPPER HIP LOWER BACK AREA. SHE HAS MET WITH DC SENIOR MARKETING SPECIALIST AND WORKED WITH P/T THIS SHIFT. HEADACHE IS RESOLVED. PT INCREASING H20 INTAKE PER DR BLAKE INSTRUCTION. CALL LIGHT AND NEEDED ITEMS IN REACH
--- NOTE | 2024-02-28 11:28 | NUR ---
GOT PT BATHROOM SET UP FOR A SHOWER OT IS IN THE SHOWER WITH PT INCASE SHE NEEDS ANYTHING. GOT NEW GOWNED, NEW SOCKS.
--- NOTE | 2024-02-28 11:50 | NUR ---
PT BACK TO THE CHAIR AFTER SHOWER ASSISTED BY O/T. REPORTS SHE "FEELS SO MUCH BETTER" FRIEND HAS ARRIVED TO VISIT. PT HAS FRESH H20 AND NEEDED ITEMS IN REACH
[2024-02-28] MEDS ORDERED: NICOTINE 14 MG/24 HR 1 EA TDSY TD ONE (12:00)
[2024-02-28] MEDS ORDERED: NICOTINE 21 MG/24 HR 1 EA TDSY TD ONE (12:00)
--- NOTE | 2024-02-28 13:20 | NUR ---
ASSISTED PT TO BATHROOM. TOLERATED WELL. GIVEN NEW ICE BAGS. PT WOULD LIKE TO NAP.
--- NOTE | 2024-02-28 14:07 | NUR ---
CHECKING IN ON PT AND HANGING ABX SHE IS UP IN THE CHAIR USING PHONE. DENIES NEED OF ANYTHING CAME FROM THE TOILET A SHORT TIME AGO. PT DOES NOT C/O ANY PAIN OR DISCOMFORTS. FRESH H20 AND NEEDED ITEMS ON BEDSIDE TABLE IN REACH
--- NOTE | 2024-02-28 14:26 | NUR ---
VISITED DURING SPIRITUAL CARE ROUNDS. PT DECLINED SPIRITUAL CARE SERVICES. PROVIDED PRAYER.
--- NOTE | 2024-02-28 15:32 | NUR ---
P/T REPORTS PPT REFUSES FURTHER P/T TODAY STATING SHE IS TOO TIRED. CONTINUES UP IN THE CHAIR AT THIS TIME
--- NOTE | 2024-02-28 16:13 | NUR ---
PT UP TO THE TOILET THEN AMBULATES THE GIFFORD TO THE RN STATION AND BACK. REPORTS SOME INCREASED PAIN AND REQUESTS TYLENOL OPPOSED TO OXY. PT RETURNS TO THE CHAIR WATCHING TV
--- NOTE | 2024-02-28 19:00 | NUR ---
REPORT RECEIVED FROM TEJINDER MCFADDEN. pt RESTING IN THE BED. BOARD UPDATED. CALL LIGHT WITHIN REACH. NO OTHER NEEDS AT THIS TIME.
--- NOTE | 2024-02-28 21:20 | NUR ---
ASSESSMENT AND VITAL SIGNS DONE. pt SITTING IN THE CHAIR AND WOULD LIKE TO SLEEP IN IT TONIGHT. pt C/O 11/13 PAIN. PRN PAIN MEDICATION ADMINISTERED. SCHEDULED MEDS ADMINISTERED PER ORDER, SEE MAR. UPPER BANDAGE HAS OLD SHADOWING ON THEM. LOWER BANDAGE CDI. pt DENIES ANY OTHER NEEDS AT THIS TIME. CALL LIGHT WITHIN REACH.
--- NOTE | 2024-02-28 22:04 | NUR ---
CALL LIGHT ANSWERED. IV ANTIBIOTIC COMPLETE. IV SL WNL. PILLOW UNDER FEET PER REQUEST, pt UP IN RECLINER WITH LEGS ELEVATED. CALL LIGHT IN REACH. NO ADDITIONAL REQUESTS.
--- NOTE | 2024-02-29 00:33 | NUR ---
pt RESTING IN THE CHAIR WITH EYES CLOSED. RR EVEN AND UNLABORED. CALL LIGHT WITHIN REACH.
--- NOTE | 2024-02-29 01:09 | NUR ---
CALL LIGHT ANSWERED. SBA TO THE BATHROOM USING WALKER TO VOID 600ML YELLOW URINE. BACK IN CHAIR. LEGS UP. 2 ICE PACK MADE FOR RIGHT HIP.
--- NOTE | 2024-02-29 01:10 | NUR ---
pt C/O 01/13 PAIN. PRN PAIN MEDICATION ADMINISTERED. pt DENIES ANY OTHER NEEDS AT THIS TIME. CALL LIGHT WITHIN REACH.
[2024-02-29 04:10] VITALS: BP 156/76
--- NOTE | 2024-02-29 04:29 | NUR ---
pt CALLED TO USE THE BR. pt SBA WITH FWW TO THE BR. pt WANTED TO WALK DOWN THE HALLWAY TO THE END OF THE FIRST NURSES STATION. pt BACK TO THE CHAIR. WATER REFRESHED. ASSESSMENT AND VITAL SIGNS DONE.
[2024-02-29 05:30] LABS: BASOPHILS 0.4 % (0-2); EOSINOPHILS 2.7 % (0-6); HEMATOCRIT 34.6 % (35.0-50.0); HEMOGLOBIN 11.5 g/dL (12.0-18.0); LYMPHOCYTES 20.7 % (24-44); MCH 30.2 (27-36); MCHC 33.2 g/dl (30-36); MCV 91.2 fl (81-99); MONOCYTES 7.4 % (0-12); NEUTROPHILS 68.8 % (39-80); PLATELET COUNT 398 K/uL (140-440); RBC 3.79 M/ul (4.3-5.7); RDW 13.4 (10.5-15.0)
[2024-02-29 05:39] LABS: ANION GAP 10.2 (7-21); BUN/CREATININE RATIO 12.82 (6.0-28.6); CALCIUM 9.5 mg/dL (8.5-10.1); CREATININE, SERUM 0.78 mg/dL (0.55-1.02); POTASSIUM 4.2 mmol/L (3.5-5.1)
--- NOTE | 2024-02-29 06:23 | NUR ---
pt RESTED THROUGH OUT THE NIGHT. pt SBA WITH FWW TO THE BR. pt UPPER BANDAGE HAS OLD SHADOWING BUT IT IS INTACT. pt LOWER BANDAGE CDI. NO CONCERNS AT THIS TIME. NORA CHAMBERLAIN ON LEFT LEG.
--- NOTE | 2024-02-29 07:10 | NUR ---
RECEIVED REPORT FROM LESA JOHNSON. PT RESTING IN CHAIR WITH EYES CLOSED, BLE ELEVATED. CALL LIGHT WITHIN REACH.
--- NOTE | 2024-02-29 07:53 | NUR ---
PATIENT IN CHAIR AT THIS TIME. ELECTRIC MOTOR REBUILDER ASSISTED PATIENT TO THE BATHROOM AND THEN BACK TO THE CHAIR. ELECTRIC MOTOR REBUILDER PROVIDED PATIENT WITH FRESH ICE WATER, WARM BLANKET, AND 2 ICE PACKS. CALL LIGHT WITHIN REACH, NO FURTHER NEEDS AT THIS TIME.
[2024-02-29] MEDS ORDERED: CEFUROXIME250 MG PO (08:20)
[2024-02-29] MEDS ORDERED: DICLOFENAC SODI75 MG PO (08:22)
--- NOTE | 2024-02-29 08:32 | NUR ---
PT AWAKE UP TO CHAIR. PT STATES PAIN IS 7/10 IN RLE, PRN PAIN MEDICATION GIVEN PER PT REQUEST. PT TAKES PO MEDICATIONS W/O DIFFICULTY. PT REQUESTS ASSISTANCE WITH CLEANING DENTURES, ASSISTANCE PROVIDED. PT UP TO RESTROOM WITH SBA AND FWW. RLE CONTINUES TO HAVE REDNESS, EDEMA IS DECREASED TO +1, PT STATES RLE REMAINS NUMB AT THIS TIME BUT STATES SHE HAS CHRONIC INTERMITTENT NUMBNESS. DRESSING ON RLE REMAINS INTACT, NO NEW DRAINAGE PRESENT, PT HAS ICE TO AFFECTED AREA. NORA HOSE IN PLACE ON LLE. PT STATES NO FURTHER NEEDS AT THIS TIME. PT BACK UP TO CHAIR AFTER RESTROOM. CALL LIGHT WITHIN REACH.
[2024-02-29 09:28] VITALS: BP 136/86
[2024-02-29 10:02] VITALS: BP 136/86
--- NOTE | 2024-02-29 10:09 | NUR ---
DISCHARGE EDUCATION AND PACKET GIVEN TO PT, PERSONAL BELONGINGS RETURNED TO PT. PHARMACY TO BEDSIDE. PT STATES NO NEEDS AT THIS TIME, CALL LIGHT WITHIN REACH.
--- NOTE | 2024-02-29 10:33 | NUR ---
IV DC'D WNL. VSS. PT DRESSES SELF WITH MINIMAL ASSISTANCE. PT LEAVING WITH ALL PERSONAL BELONGINGS. PT UP TO WHEELCHAIR WITH FWW AND SBA.
--- NOTE | 2024-02-29 10:43 | NUR ---
UR CONCURRENT REVIW: 2 MN FOR VERSALUS-MEETS OBS CRITERIA MEDICARE OBS 02/26/24 @ 1830 ORDER MATCHES REG NO AUTH PER MEDICARE GUIDELINES DISCHARGE TO HOME TODAY
== END 2024-02-29 10:40 | disposition home or self-care (01) ==
LOC: ED 18:29 → MS 18:30
PROVIDERS: Family Medicine; Internal Medicine; ADMIT Specialist; ATTEND Specialist
DX: T84.51XA Infection and inflammatory reaction due to internal right hip prosthesis, initial encounter (principal); L03.115 Cellulitis of right lower limb; I10 Essential (primary) hypertension; E11.42 Type 2 diabetes mellitus with diabetic polyneuropathy; I25.10 Atherosclerotic heart disease of native coronary artery without angina pectoris; J44.9 Chronic obstructive pulmonary disease, unspecified; E78.5 Hyperlipidemia, unspecified; F39 Unspecified mood [affective] disorder; F17.200 Nicotine dependence, unspecified, uncomplicated; E66.9 Obesity, unspecified; Z68.31 Body mass index [BMI] 31.0-31.9, adult; Z96.641 Presence of right artificial hip joint; Z79.1 Long term (current) use of non-steroidal anti-inflammatories (NSAID); Z79.899 Other long term (current) drug therapy; Z88.2 Allergy status to sulfonamides; Z91.048 Other nonmedicinal substance allergy status; M79.89 Other specified soft tissue disorders; M79.661 Pain in right lower leg
CPT/HCPCS: 36415; 80048; 80053; 83605; 85025; 85379; 85651; 86140; 87040; 93971; 96365; 96366; 96374; 96375; 96376; 97161; 97530; 97535; 99284-25; A9270; G0378; J0696; J0697; J0878; J1815; J1885

== ENCOUNTER 2025-05-27 05:25 | Day surgery (SDC) | payer MEDICARE, OTHER ==
[~2025-05-27] VITALS: Ht 175.3 cm; Wt 95.0 kg
[~2025-05-27 05:25] MED LIST changes: +AMLODIPINE BESY10 MG PO; +CALCIUM CITRAT250 MG PO; +DICLOFENAC SODI75 MG PO; +DULOXETINE HCL20 MG PO; +HYDROCORTISONE20 MG PO; +IRON325 M1 PO; +LACTATED RINGER'S 1,000 ML IV SCH; +LISINOPRIL40 MG PO; +METFORMIN HCL500 M1 PO; +TYLENOL EXTRA500 MG PO; +VITAMIN D350 MC3 PO; +WOMEN'S 50 PLU1 EACH PO
[2025-05-27 06:12] VITALS: BP 114/67
[2025-05-27] MEDS ORDERED: BUPIVACAINE 0.75% IN DEXTROSE 2 ML AMP ONE (06:26)
[2025-05-27] MEDS ORDERED: LIDOCAINE HCL 2% 5 ML SDV ONE (06:32)
[2025-05-27] MEDS ORDERED: DULOXETINE HCL 30 MG CAP PO ONE (06:45)
[2025-05-27] MEDS ORDERED: DULOXETINE HCL 20 MG CAP PO SCH (06:45)
[2025-05-27] MEDS ORDERED: MIDAZOLAM HCL 2 MG/2 ML VIAL ONE (06:56)
[2025-05-27] MEDS ORDERED: CEFAZOLIN SODIUM 2 GM in SODIUM CHLORIDE 0.9% 100 ML IV SCH ×3 (07:00→15:00)
[2025-05-27] MEDS ORDERED: LIDOCAINE HCL 1% 5 ML SDV INJ ONE (07:00)
[2025-05-27] MEDS ORDERED: PANTOPRAZOLE SODIUM 40 MG TABEC PO SCH (07:00)
[2025-05-27] MEDS ORDERED: OXYCODONE HCL 5 MG TAB PO SCH (07:00)
[2025-05-27] MEDS ORDERED: IBLOOD GLUCOSE TEST STRIP 1 EA TEST VI PRN ×2 (07:00→08:00)
[2025-05-27] MEDS ORDERED: TRANEXAMIC ACID IN NACL,ISO-OS 1,000 MG/100 ML PIGGYBACK IV SCH ×4 (07:00→14:10)
[2025-05-27] MEDS ORDERED: fentaNYL citrate 100 MCG/2 ML VIAL ONE (07:33)
[2025-05-27] MEDS ORDERED: NALOXONE HCL 0.4 MG SYR IV PRN (08:00)
[2025-05-27] MEDS ORDERED: fentaNYL citrate 50 MCG/ML SDV IV PRN (08:00)
[2025-05-27] MEDS ORDERED: HYDROmorphone HCL 1 MG/ML SYR IV PRN (08:00)
[2025-05-27] MEDS ORDERED: PHENYLEPHRINE HCL IN 0.9% NACL 1 MG/10 ML SYR ONE ×2 (08:03→08:27)
[2025-05-27] MEDS ORDERED: KETOROLAC TROMETHAMINE 30 MG/ML VIAL ONE (08:31)
[2025-05-27] MEDS ORDERED: DEXAMETHASONE SOD PHOS 4 MG/ML VIAL ONE (08:31)
[2025-05-27] MEDS ORDERED: OXYCODONE HCL 5 MG TAB PO PRN ×2 (08:45→11:15)
[2025-05-27] MEDS ORDERED: CEFUROXIME250 MG PO (08:50)
[2025-05-27] MEDS ORDERED: ASPIRIN325 MG PO (08:50)
[2025-05-27] MEDS ORDERED: SENNA LAX8.6 MG PO (08:51)
[2025-05-27] MEDS ORDERED: OXYCODONE HCL5 M1 PO (08:51)
[2025-05-27] MEDS ORDERED: TRANEXAMIC ACI650 MG PO (08:51)
--- NOTE | 2025-05-27 09:57 | OR ---
[facility] [address] [place], [place] [address] Signed DATE OF OPERATION: 05/27/2025 SURGEON: Myah Kelsey MD PREOPERATIVE DIAGNOSIS: Severe degenerative joint disease, left hip. POSTOPERATIVE DIAGNOSIS: Severe degenerative joint disease, left hip. PROCEDURE PERFORMED: Left total hip arthroplasty. HOT SHOT: Jessy Hall PA-C. Jessy was present and critical for all portions of procedure. ANESTHESIA: Spinal. BLOOD LOSS: 155 mL. IMPLANTS: Howie Insignia size 4 high offset with a 58 mm cup and a +5 head. BRIEF HISTORY: Mary is a 69-year-old female with progressive worsening of arthritis. She had undergone previous right total hip and wished to proceed with the left. Risks, benefits, and alternatives of surgery were discussed with her and she elected to proceed. DESCRIPTION OF PROCEDURE: Once consent was obtained, she was taken to the operating room. After adequate spinal was established, she was placed in the right lateral decubitus position with an axillary roll. All downside pressure points were well padded. The hip was then prepped and draped in a standard sterile fashion. The computer navigation array for the Estuardo system was then placed in the posterior half of the iliac crest. The hip was then approached through a standard anterior lateral approach. The skin incision was carried through the skin and subcutaneous tissue. The IT band was divided longitudinally. The vastus lateralis was divided along the anterior margin of the femur to the tip of the Electronically Signed By: MYAH KELSEY MD 05/27/25 0957 PATIENT NAME: MARY REDDY OPERATIVE REPORT DATE OF : 59 REPORT #: [id number] PHYSICIAN: MYAH KELSEY MD PCP: ELIE RODRIGUEZ NP REPORT IS CONFIDENTIAL AND NOT TO BE RELEASED WITHOUT AUTHORIZATION [facility] [address], [place] [address] Signed trochanter. This was then taken down through the capsule to the acetabular rim. This was then peeled anteriorly off the femur in a subperiosteal manner. The leg was then registered with the computer and the hip was dislocated. Femoral neck cut was made 3 mm above the lesser trochanter. The periacetabular soft tissue was then removed. The acetabulum was then registered with the computer. Once this was completed, the robot was brought in, however, the robot was unable to register within the limitations. We were unable to get it close enough to be able to use it. We then switched to hand reaming the acetabulum. The acetabulum was reamed with a 56 and then a 58. The 58 cup was then impacted in 40 degrees of abduction and 15 degrees of anteversion. Two screws were placed in the posterior superior quadrant. The acetabular liner was then impacted. Excellent stability of the acetabular cup was then verified. Attention was turned to the proximal femur, which was opened using a [employer] cutter, followed by the Charnailaey awl. The femur was then broached up to 4 which was found to be well fitting. The 4 was left in position and a high offset neck and initially a 0 then +5 head were trialed. +5 head showed good leg lengths, good soft tissue tension and excellent range of motion. The hip was then dislocated. The trial was removed. The final stem was impacted until it was seated down on the femoral neck cut. The +5 ceramic head was then impacted onto the trunnion after cleaning it. The hip was again reduced, taken through range of motion and found to be good. The wound was then copiously irrigated with one bottle of Surgiphor followed by normal saline. Periarticular soft tissues were injected with 80 mL ropivacaine and Toradol mixture. The capsule was then closed using #2 FiberWire. The vastus and IT band layers were closed independently using #2 Stratafix, subcutaneous tissue with 0 Stratafix and the skin with 3-0 Stratafix. Wound was sealed with LiquiBand, dressed with Acticoat-7 dressing. She was awakened, taken to the recovery room in satisfactory condition. All sponge, needle, and instrument counts were correct. Myah Kelsey MD BA/MODL /[id number] Copies: ~ Electronically Signed By: MYAH KELSEY MD 05/27/25 0957 PATIENT NAME: MARY REDDY OPERATIVE REPORT DATE OF : 59 REPORT #: [id number] PHYSICIAN: MYAH KELSEY MD PCP: ELIE RODRIGUEZ NP REPORT IS CONFIDENTIAL AND NOT TO BE RELEASED WITHOUT AUTHORIZATION
--- NOTE | 2025-05-27 10:25 | NUR ---
PT TO DS FROM PACU VIA STRETCHER. PT REPORTS PAIN 8/10, NO CHANGE FROM PACU DESPITE MEDS GIVEN. PT REPORTS NO NAUSEA. PT ON RA W/O2 >90% VIA PULSE OX, RESPIRATIONS EVEN AND UNLABORED, NO SIGNS OF DISTRESS. PT BURPING A LOT AND OCCASIONALLY HAVING ACID REFLUX SPIT UP. PT TOLERATING ICE WATER WITHOUT DIFFICULTY. PT EATING PUDDING/CRACKERS FOR BALLPOINT PEN ASSEMBLY MACHINE OPERATOR FOR PAIN. CALL LIGHT WITHIN REACH, FRIEND GOING TO GET PRESCRIPTIONS.
[2025-05-27 10:27] VITALS: BP 151/75
--- NOTE | 2025-05-27 10:58 | NUR ---
IN PT ROOM FOR GUYLINE OPERATOR OF MUSCLE RELAXER. PT TOLERATED ORALS WITHOUT DIFFICULTY, HOB ELEVATED D/T ACID REFLUX. PT IS RESTING W/EYES CLOSED. RESPIRATIONS EVEN AND UNLABORED, NO SIGNS OF DISTRESS. O2 >90% VIA PULSE OX. CALL LIGHT WITHIN REACH.
[2025-05-27] MEDS ORDERED: KETOROLAC TROMETHAMINE 15 MG/ML VIAL IV PRN (11:15)
--- NOTE | 2025-05-27 11:40 | NUR ---
IN PT ROOM FOR ASSESSMENT. PT REPORTS PAIN HAS LESSENED, BUT REMAINS ACHEY. ICE PACK READJUSTED. ICE PACK PROVIDED FOR PT NECK WHICH HAS CHRONIC PAIN. NO ACUTE CHANGES TO SURGICAL SITE. SPINAL RESOLVED, PT REPORTS SENSATION IN BLE AND ABLE TO MOVE FEET WITHOUT DIFFICULTY. CALL LIGHT WITHIN REACH. LUNCH ORDER TAKEN. NO FAMILY MEMBER PRESENT AT BEDSIDE AT THIS TIME.
[2025-05-27 11:49] VITALS: BP 147/69
--- NOTE | 2025-05-27 12:15 | NUR ---
PT STATES SLIGHTLY NAUSEOUS, PT CONTINUES TO BURP A LOT WHICH PROVIDES RELIEF. SPRITE PROVIDED TO AID WITH GAS. PT USING ALCOHOL SWAB AT HER CONVENIENCE. PT STATES THE NAUSEA COMES AND GOES, NO EMESIS. PT STATES PAIN JUST REMAINS AN ACHE. CALL LIGHT WITHIN REACH. PT STATES NO FURTHER NEEDS OR QUESTIONS AT THIS TIME. LUNCH HAS ARRIVED AND PT SITTING UP TO EAT CHICKEN NOODLE SOUP AT THIS TIME.
--- NOTE | 2025-05-27 12:45 | NUR ---
SPRING WITH PHYSICAL THERAPY IN ROOM WITH PT AT THIS TIME.
--- NOTE | 2025-05-27 13:10 | NUR ---
05/27/25 1310 MainorLeona[address]rin Dayana 0899- PT ARRIVES TO PACU, [place]ILL[place] POSITION, AWAKE BUT DROWSY. LR INFUSING TO LH IV. O2 AT 6L PER MASK, BREATHING EVEN AND NON LABORED. PT ABLE TO MOVE FEET SLIGHTLY. PAIN TO UPPER INCISION, DRESSING CDI TO LEFT HIP. ALL MONITORS IN PLACE. 0904- PT MOVED TO ROOM AIR AT THIS TIME. C/O 10/10 PAIN. 0910- PT MEDICATED WITH FENTANYL, PT REPORTS LOTS OF PRESURE AND WANTING TO MOVE. 0913- PT DENIES CHANGE IN PAIN, 2ND DOSE FENTANYL GIVEN. PT IS TRYING TO MOVE AROUND TO FIND COMFORT. 0916- XRAY COMPLETED AT BEDSIDE. 0928- PT DENIES CHANGE IN PAIN AFTER FENTANYL. PT MEDICATED WITH DILAUDID. REPORTS PAIN STILL 10/10. CRYO CUFF IN PLACE. ICE WATER PROVIDED. 0938- PT REPORTS PAIN IMPROVED TO A 9/10. CONTINUES TO TRY TO MOVE, SHIFTED PT HIPS AND LAID BACK. PT GIVEN 2ND PILLOW AND ICE PACK FOR CHRONIC NECK PAIN. 2ND DOSE OF DILAUDID GIVEN. PT GRIMACING. 0945- WDelma COON CNA CAREGIVER CALLED ABOUT PT PAIN AND NO PAIN RELIEF AFTER DILAUDID AND FENTANYL. Nuha SOUSA INTO PACU TO EVALUATE PT. PT GRIMACING AND TRYING TO LIFT LEFT HIP OFF BED. REPOSITIONED PT WITH LEFT HIP SLIGHTLY ELEVATED ON PILLOW AND KNEES BENT TO DECREASE PRESSURE. PT REPORTS SOME RELIEF BUT CONTINUES TO RATE PAIN 8/10. ORDERS RECEIVED FOR PO ROBAXIN. 1000- PT MEDICATED WITH FENTANYL, NOW PAIN BACK TO 9/10.
--- NOTE | 2025-05-27 13:20 | NUR ---
PT ATTEMPTS URINE VOID W/PHYSICAL THERAPY. PT UNABLE TO URINE VOID. PT OFF OF UNIT WITH SPRING THE PHYSICAL THERAPIST AT THIS TIME.
--- NOTE | 2025-05-27 13:45 | NUR ---
PT ARRIVES TO FROM WORKING W/SPRING AT PHYSICAL THERAPY. PER SPRING WITH PHYSICAL THERAPY, PT HAS PASSED. PT USES RESTROOM, URINE VOID OF 175 ML CLEAR/YELLOW URINE. PT BACK TO [facility] W/PHYSICAL THERAPY IS ASSISTING WITH GETTING DRESSED. CALL LIGHT WITHIN REACH.
[2025-05-27 14:00] VITALS: BP 128/66
--- NOTE | 2025-05-27 14:24 | NUR ---
VO FROM LOU GUTIÉRREZ RECEIVED FOR PT DC. NO NEW ORDERS PROVIDED BESIDES DISCHARGE. ANCEF INFUSING. CALL LIGHT WITHIN REACH. FRIEND AT BEDSIDE.
--- NOTE | 2025-05-27 14:45 | NUR ---
DC EDUCATION PROVIDED. PT AND PT FRIEND STATE VERBAL UNDERSTANDING AND NO FURTHER QUESTIONS AT THIS TIME. PT OFF OF UNIT VIA WC TO PASSENGER SIDE OF TRUCK. ALL BELONGINGS IN PT POSSESSION. PT REPORTS NO FURTHER NEEDS. EMESIS BAG, WATER CUP, INCENTIVE SPIROMETER, AND EXTRA ICE PACK PROVIDED.
[2025-05-27] MEDS ORDERED: SENNOSIDES 1 TAB PO SCH ×2 (21:00)
[2025-05-28] MEDS ORDERED: ASPIRIN 325 MG TAB PO SCH ×2 (08:00)
[2025-05-28] MEDS ORDERED: TRANEXAMIC ACID 650 MG TABLET PO SCH (09:00)
[2025-05-28] MEDS ORDERED: DULOXETINE HCL 30 MG CAP PO SCH (09:00)
== END 2025-05-27 14:45 | disposition home or self-care (01) ==
LOC: DS 05:25
PROVIDERS: ATTEND Specialist
PROC: 0SRB0JZ Replacement of Left Hip Joint with Synthetic Substitute, Open Approach (ICD-10-PCS; principal; 2025-05-27 07:00)
DX: M16.12 Unilateral primary osteoarthritis, left hip (principal); E11.9 Type 2 diabetes mellitus without complications; I10 Essential (primary) hypertension; E78.5 Hyperlipidemia, unspecified; Z88.2 Allergy status to sulfonamides; Z88.8 Allergy status to other drugs, medicaments and biological substances; Z91.048 Other nonmedicinal substance allergy status; Z87.891 Personal history of nicotine dependence
CPT/HCPCS: 0055T; 27130; 01214; 72170; 97110; 97116; 97161; 97530; A9270; C1713; C1776; J0165; J0688; J1100; J1171; J1885; J2003; J2250; J2405; J2704; J3010; J7121

== ENCOUNTER 2025-06-02 07:10 | Emergency (ER) | payer MEDICARE, OTHER ==
[~2025-06-02] VITALS: Ht 175.3 cm; Wt 100.9 kg
[~2025-06-02 07:10] MED LIST changes: +ASPIRIN325 MG PO; -LACTATED RINGER'S 1,000 ML IV SCH; +OXYCODONE HCL5 M1 PO; +TRANEXAMIC ACI650 MG PO
[2025-06-02] MEDS ORDERED: fentaNYL citrate 100 MCG/2 ML VIAL IV PRN (07:30)
[2025-06-02 07:38] LABS: BASOPHILS 0.4 % (0.1-1.2); EOSINOPHILS 0.1 % (0.7-5.8); LYMPHOCYTES 15.1 % (19.3-51.7); MCH 29.2 PG (25.6-32.2); MCHC 32.9 g/dL (32.2-35.5); MCV 88.7 fL (79.4-94.8); MONOCYTES 6.6 % (4.7-12.5); NEUTROPHILS 76.7 % (34.0-71.1); RBC 3.91 M/uL (3.93-5.22)
[2025-06-02 07:47] LABS: ALT (SGPT) 33.0 U/L (14-59); AST (SGOT) 16.0 U/L (15-37); GLOMERULAR FILTRATION RATE,EST 81.0 mL/min (>60); PROTEIN, TOTAL 7.0 g/dL (6.4-8.2); UREA NITROGEN 16.0 mg/dL (7-18)
[2025-06-02] MEDS ORDERED: LIDOCAINE HCL 4% 1 EACH PATCH TD ONE (08:15)
[2025-06-02] MEDS ORDERED: KETOROLAC TROMETHAMINE 30 MG/ML VIAL IV ONE (08:15)
[2025-06-02 08:19] LABS: BLOOD/HGB, URINE NEGATIVE (Negative); KETONE, URINE NEGATIVE (Negative); LEUK ESTERASE, URINE NEGATIVE (negative); NITRITE, URINE NEGATIVE (negative)
[2025-06-02] MEDS ORDERED: MEDROL8 MG PO (08:47)
[2025-06-02] MEDS ORDERED: LIDODERM1 EACH TOP (08:47)
[2025-06-02] MEDS ORDERED: OXYCODONE/APAP 7.5/325 TAB PO ONE (10:00)
[2025-06-02] MEDS ORDERED: ACETAMINOPHEN 325 MG TAB PO ONE (10:00)
[2025-06-02] MEDS ORDERED: METOCLOPRAMIDE HCL 10 MG/2 ML SDV IV ONE (10:15)
[2025-06-02 13:32] VITALS: BP 168/75
== END 2025-06-02 13:32 | disposition home or self-care (01) ==
LOC: ED 07:10
PROVIDERS: Emergency Medicine
DX: M54.50 Low back pain, unspecified (principal); M46.1 Sacroiliitis, not elsewhere classified; I10 Essential (primary) hypertension; E11.9 Type 2 diabetes mellitus without complications; J44.9 Chronic obstructive pulmonary disease, unspecified; F17.200 Nicotine dependence, unspecified, uncomplicated; Z79.84 Long term (current) use of oral hypoglycemic drugs; Z79.899 Other long term (current) drug therapy; Z79.82 Long term (current) use of aspirin; Z88.2 Allergy status to sulfonamides; Z88.8 Allergy status to other drugs, medicaments and biological substances
CPT/HCPCS: 36415; 51701; 72100; 72170; 74177; 80053; 81003; 85025; 86140; 96374; 96375; 96376; 99284-25; A9270; J1885; J2405; J2765; J2919; J3010; Q9967